=== PATIENT | female | born 1995 | race Caucasian/White ===

== ENCOUNTER 2024-07-11 14:10 | Emergency (ER) | payer OTHER, SELFPAY ==
[2024-07-11 14:13] VITALS: BP 131/91
[2024-07-11 14:49] VITALS: BMI 33.6
--- NOTE | 2024-07-11 16:11 | ED.GENMED ---
History of Present Illness
General
Chief Complaint: Back Pain
Source: patient
Exam Limitations: none
Time Seen by Provider: 07/11/24 15:21
Nursing documentation reviewed up to this point in time: agreed with
History of Present Illness
History of Present Illness:
29-year-old female with history of previous pseudoseizures
Presents for 2 weeks of continued lower back pain to the right which radiates down to her knee. Is worse with sitting and better with standing. She has not had any weakness or incontinence. She is not using any IV drugs. Patient went to her
family doctor who ordered x-rays. Patient said on the x-ray she had findings of mild scoliosis as well as disc herniations. I was able to review the report which did not include the impression of the disc herniations bu mild retrolisthesis of L2
on L3 and L3 on L4 but maintained intervertebral spacing well. Patient had normal lordosis. There were no other concerning findings on this report. Patient was given a Medrol Dosepak and told to follow-up with physical therapy. She has an
appointment with orthopedics next week and has not yet scheduled PT. She took the Medrol Dosepak and has continued to take ibuprofen without relief. Today the pain seems to have gotten worse after sitting while at work this morning. She had no
new injuries. Patient still denies weakness, numbness, incontinence. Her pain is a 9 out of 10 currently. She says she cannot get comfortable to matter what she does.
Past History
Past History
ED Past Medical History: Other (pseudoseizure)
Social History
Tobacco: Non-smoker
Alcohol: None
Drug: None
Personal: Single
Employment: Employed
Review of Systems
Review of Systems
Allergies reviewed?: Yes
All Other Systems: Not applicable
Phy Exam
Physical Exam
Physical Exam:
GENERAL: Alert , in no apparent distress, looks very comfortable
HEAD: NCAT
NECK: no midline tenderness, active ROM intact, no paraspinal muscle tenderness;
CARDIAC: Regular rate and rhythm, no edema, DP pulse intact right leg
LUNGS: Clear breath sounds bilaterally, no acute respiratory distress, no wheezes/rales/rhonchi
ABDOMEN: Soft, without focal tenderness, no r/g, no cvat, normal bowel sounds, nondistended
NEUROLOGICAL: Alert and oriented, no focal neuro deficits, CN intact, 5/5 strength, sensation intact,
SKIN: Warm and dry,
Back mild lower lumbar and right paraspinal muscle tenderness, mild right SI joint tenderness, pain with flexion of the back but able to fully flex, negative straight leg raise bilaterally, 5 out of 5 strength, intact sensation
Neurovascularly intact
PSYCH: Normal and appropriate interaction.
Course
Orders/Labs/Results
Orders:
Orders
07/11/24 16:10
Acetaminophen [Tylenol] 650 mg PO NOW STA
Prednisone [Deltasone] 50 mg PO NOW STA
Vital Signs
Initial and Last Documented VS:
Initial Vital Signs
Temp Pulse Resp BP Pulse Ox
36.9 C 95 18 131/91 97
07/11/24 14:13 07/11/24 14:13 07/11/24 14:13 07/11/24 14:13 07/11/24 14:13
Last Documented Vital Signs
Temp Pulse Resp BP Pulse Ox
36.9 C 95 18 131/91 97
07/11/24 14:13 07/11/24 14:13 07/11/24 14:13 07/11/24 14:13 07/11/24 14:13
MDM/Problems Addressed
Differential Diagnosis Includes:
Lumbar chronic back pain, disc disease, lumbar radiculopathy, SI joint/sciatica
MDM/Problems Addressed:
29-year-old female with atraumatic back pain for the last couple weeks, worse today with same distribution of pain down the right leg without numbness or weakness. There is no incontinence. She has no concerns for risk factors for cauda equina.
Patient had x-rays and verbally reported to me she had a lumbar disc herniation however patient was educated that this cannot be identified on x-rays. She may end up needing an MRI eventually but for now she has neurovascularly intact status with
positional changes back pain,
Sciatica/radiculopathy symptoms. Will try a stronger round of steroids, prednisone 50 for 4 more days starting tomorrow, Tylenol 3 times a day, muscle relaxer at night, lidocaine patches and encourage follow-up with pt
*Critical Care Note
Total Time (30-74mins, 75-104mins- exclusive of procedures): Not Applicable
ED Attending Note
-
Portions of this chart may have been created with voice recognition software.� Occasional wrong word or��sound alike� substitutions may have occurred due to the inherent limitations of voice recognition software.
Discharge Plan
Departure
Patient Disposition: Home (Routine Discharge)
Date of Disposition: 07/11/24
Time of Disposition: 16:17
Patient with high blood pressure during this ER visit?: No
Condition: Fair
Covid-19: Not Applicable
Discharge Problem:
Low back pain, Sciatica
Instructions: Sciatica (DC)
Prescriptions:
New
prednisone 50 mg tablet
50 mg PO DAILY Qty: 4 0RF
cyclobenzaprine 10 mg tablet
10 mg PO HS PRN (Reason: muscle spasm) Qty: 7 0RF
lidocaine 5 % adhesive patch,medicated
1 patch topical DAILY PRN (Reason: back pain) Qty: 15 0RF
Referrals:
Quinten Saravia CRNP [Family Provider] -
Stand Alone Forms: Return to Work
Activity Restrictions/Additional Instructions:
take Tylenol 1000 mg 3 times a day, prednisone once a day starting tomorrow for the next 4 days, 1 dose of ibuprofen daily with food as needed for additional pain. Take Flexeril at night 10 mg, this may make you tired the next day. Lidocaine
patch 12 hours on, 12 hours off. Follow-up with your physical therapist appointment and orthopedics. Return for leg weakness or new numbness, incontinence of urine, fever or any concerns
Interventions
Interventions:
*Risk Screen - Suicide Last Done: 07/11/24 14:13
*General Assessment Last Done: 07/11/24 14:13
*Neglect/Abuse Screening Last Done: 07/11/24 14:13
*ED- Fall Risk Assessment Last Done: 07/11/24 14:49
*ED COVID-19 Vaccine History Last Done: 07/11/24 14:49
*Nursing Disposition Last Done: 07/11/24 16:45
ED-Musculoskeletal Assessment Last Done: 07/11/24 14:49
Discharge Date and Time
Discharge Date/Time: 07/11/24 16:45
Print Language: DIVEHI
[2024-07-11] MEDS: TYLENOL 650 MG PO (16:31)
[2024-07-11] MEDS: DELTASONE 50 MG PO (16:31)
== END 2024-07-11 16:45 | disposition home or self-care (01) ==
LOC: EMR 14:10
PROVIDERS: EMERGENCY PHYSICIAN Emergency Medicine; FAMILY PHYSICIAN Nurse Practitioner Gerontology
DX: M54.41 Lumbago with sciatica, right side (principal)
CPT/HCPCS: 99283